=== PATIENT | male | born 1955 | race Caucasian/White ===

== ENCOUNTER 2016-04-12 13:43 | Inpatient (IN) | payer OTHER ==
[~2016-04-12] VITALS: Ht 185.4 cm; Wt 111.7 kg
[2016-04-12 13:49] VITALS: BP 157/99; PULSE 66; RESP 20; O2SAT 99
--- NOTE | 2016-04-12 14:03 | ED.REPORT ---
HPI-Neurologic Deficit Date of Service Apr 12, 2016 ED Provider: John Holder MD The patient is a 60 year old male with history of high cholesterol and atrial fibrillation no anticoagulated, who presents to the emergency department complaining of stroke like symptoms. At 1315 when he was on the phone with his daughter he noticed difficulty finding his words. Soon after he noticed right lower extremity weakness which progressed up his entire left side. This lasted for about 1-2 minutes and is completely resolved at this time. He does currently complain of a headache. 2 weeks ago he had an episode of vision loss that he describes as a curtain going across his visual field. He denies history of stroke or stroke workup. He has never had similar symptoms in the past. He is not on blood thinners. He denies recent falls or trauma. Nursing Notes Stated Complaint: LEFT SIDE WEAKNESS Chief Complaint: Neuro Symptoms/ Deficits Nursing Notes Reviewed: Yes Allergies: Coded Allergies: No Known Allergies (Unverified , 05/09/15) No Active Prescriptions or Reported Meds General Time Seen by Provider: 14:04 Chief Complaint Weakness leg... (Right), Other (difficulty finding words) Hx Obtained From: Patient, Spouse Arrived By: Walk-in Sudden in Onset?: Yes Onset Occurred: 46 - 59 minutes ago Symptom Duration: 1 - 15 minutes Progression Since Onset: Resolved Location: : Head Severity: Current: Mild Severity: Maximum: Moderate Recent Healthcare: No recent doctor visit, No recent hospitalization Similar Sx Previous: No Past Medical History Past Medical History Hx of kidney stones Atrial fibrillation High cholesterol Past Surgical History Fat removal from neck Family History Noncontributory Smoking History Never Smoker Social History Alcohol Use: "Social" Other Social History: Good social support, , Local resident Ambulatory Status Independent Review of Systems Review of Systems Note: +difficulty finding words Neurologic: Reports: Focal weakness, Headache, Problem walking Complete sys rev & neg: except as marked. Physical Exam Initial Vital Signs Vital Signs (First) Date Time Temp Pulse Resp B/P Pulse Ox O2 Delivery O2 Flow Rate FiO2 04/12/16 13:49 36.4 66 20 157/99 99 Room Air Initial VS: Reviewed Neck: Supple, Non-tender, Full range of motion Abdomen / GI: Soft, Non-tender, No guarding, No rebound, No distention Lymphatic: No lymphadenopathy Extremities: Vascular intact, Neuro intact, No swelling, No tenderness Skin: Warm, Dry, No cyanosis Psychiatric: Mood/affect normal, Behavior normal, Normal thought content General/Constitutional: Awake, Alert, Cooperative Head / Eyes: Atraumatic, Normocephalic, PERRL, EOMI, No nystagmus Respiratory / Chest: Atraumatic, Breath sounds NL, Breath sounds = bilat, No respiratory distress, No rales, No rhonchi, No wheezing Cardiovascular: Heart rate NL, Regular rhythm, Heart sounds NL, No gallop, No murmurs, No rubs, Peripheral circulation NL Neurologic: Oriented X3, Speech NL, No motor deficits, No sensory deficits, CN II - XII intact, Cerebellar NL, Memory NL, Gait NL Speech is fluent, linear, and organized. No slurred speech or difficulty finding words. No facial droop. Strength is 5/5 to all 4 extremities. ENT: Airway patent Mouth: Positive: Mucous membranes dry (slightly) Lower Extremity / Pelvis / MS: Neurologic intact, Vascular intact, No edema No calf swelling or tenderness Interpretation & Diagnostics Lab Results Interpretation Result Diagram: 04/12/16 1402 04/12/16 1402 Test 04/12/16 14:02 04/12/16 14:54 White Blood Count 10.3th/mm3 (3.8-10.1) Red Blood Count 5.08mil/mm3 (4.40-5.80) Hemoglobin 15.4g/dL (13.8-17.2) Hematocrit 45.1% (41.0-50.0) Mean Corpuscular Volume 88.8fL (81-100) Mean Corpuscular Hemoglobin 30.3pg (27.0-35.0) Mean Corpuscular Hemoglobin Concent 34.1% (32.0-37.0) Red Cell Distribution Width 14.0% (12.3-15.4) Platelet Count 263bil/L (150-400) Neutrophils (%) (Auto) 50.0% (40-74) Lymphocytes (%) (Auto) 39.2% (14-46) Monocytes (%) (Auto) 8.1% (4-12) Eosinophils (%) (Auto) 1.8% (0-5) Basophils (%) (Auto) 0.4% (0-3) Prothrombin Time 10.6sec (8.1-12.5) Prothromb Time International Ratio 0.99ratio Activated Partial Thromboplast Time 26.2sec (22.8-33.0) Sodium Level 138mEq/L (134-144) Potassium Level 4.2mEq/L (3.5-5.2) Chloride Level 99mEq/L (97-108) Carbon Dioxide Level 25mmol/L (18-29) Blood Urea Nitrogen 23mg/dL (6-24) Creatinine 0.93mg/dL (0.76-1.27) Estimat Glomerular Filtration Rate 88mL/min (>59) Glucose Level 109mg/dL (60-99) Calcium Level 9.1mg/dL (8.5-10.1) Total Bilirubin 0.2mg/dL (0.0-1.2) Aspartate Amino Transf (AST/SGOT) 16U/L (0-50) Alanine Aminotransferase (ALT/SGPT) 18U/L (0-44) Alkaline Phosphatase 72U/L (25-160) Troponin T < 0.010ug/L (0.0-0.011) Total Protein 7.1g/dL (6.4-8.4) Albumin 4.2g/dL (3.4-5.0) Hold Cardoza Top Tube Received (Received) ECG Interpretation ECG Interpretation: Sinus rhythm Normal axis Incomplete RBBB No ST segment changes Inferior Q waves present No T wave abnormalities Compared to prior dated 05/09/2015 there are no changes Time: 14:09 Interpreted by: ED physician CT Head Interpretation IMPRESSION: No acute intracranial abnormalities. Dictated by: Tania Cruz M.D. on 04/12/2016 at 14:54. Study: Head CT no contrast Interpretation / Wet Read by: Interpret - Radiologist Re-Eval/Medical Decision Med Decision/Clinical Course The patient is a 60 year old male with history of high cholesterol and atrial fibrillation not anticoagulated, who presents to the emergency department complaining of stroke like symptoms. Approximately 45 minutes prior to arrival he had left-sided weakness with slurred speech that lasted 5-10 minutes and has now completely resolved. Full head to toe neurologic assessment here in the emergency department is completely unremarkable. Head CT was obtained and demonstrated no evidence of acute intracranial process , hemorrhage or mass lesion. CBC unremarkable, CMP unremarkable, troponin negative, coags are WNL. EKG was obtained and interpreted by myself as documented above. Of note he was not in atrial fibrillation and was never in atrial fibrillation on continuous cardiac monitoring. Overall presentation concerning for transient ischemic attack, I am concerned that he is in and out of atrial fibrillation and may be having recurrent TIAs as a result thereof. He is currently not on any anticoagulant medication or aspirin. At this time he is neurologically intact and therefore not a candidate for TPA. I feel that he warrants admission for further workup likely including echocardiogram, carotid imaging and MRI of the brain. After discussing with the admitting hospitalist and ruling out intracranial hemorrhage he was initiated on heparin infusion due to his underlying atrial fibrillation. He was transferred in stable condition. Source of Hx: Old records, Family Re-Evaluation/Progress : Time of Eval: 14:09 Re-Evaluation/Progress Note: Discussed plan for admission. All questions were addressed. Consultation : Referral / Consult Name: Stephen Vallecillo MD Consulted With: Hospitalist Call Returned at: 14:56 Rn Navigator: Will see patient, Agrees with eval, Agrees with plan, Accepts admit Counseled Regarding: Diagnosis, Lab results, Need for admission Discharge & Departure Impression: Primary Impression: TIA (transient ischemic attack) Transient cerebral ischemia type: unspecified Qualified Code: G45.9 - Transient cerebral ischemic attack, unspecified Additional Impressions: Paroxysmal atrial fibrillation Left-sided weakness Slurred speech Hyperlipidemia Hyperlipidemia type: unspecified Qualified Code: E78.5 - Hyperlipidemia, unspecified Disposition: ADMITTED TO HOSPITAL Discharge Condition All VS Reviewed: Yes Condition: Stable Referrals: NOPCP (PCP) Crit Care Except Billable Proc Time Spent: 30-74 minutes Services Performed: Patient management by me, Time spent at bedside, Reviewing test results, Reviewing imaging, Discussing patient care, Documentation in record, Time with fam/surrogate Scribe Attestation Portions of this note were transcribed by Steph Manzo. I, Dr. Holder personally performed the history, physical exam and medical decision-making; I reviewed and confirmed the accuracy of the information in the transcribed note. Signed by: Richard Rojas, 04/12/2016 at 1516. John Holder MD Apr 12, 2016 14:03 Steph Manzo Apr 12, 2016 14:13
[2016-04-12 14:28] LABS: BASOPHILS % (AUTO) 0.4 % (0-3); EOSINOPHILS % (AUTO) 1.8 % (0-5); MONOCYTES % (AUTO) 8.1 % (4-12); Mean Corpuscular Hemoglobin 30.3 pg (27.0-35.0); Mean Corpuscular Volume 88.8 fL (81-100); Platelet Count 263 bil/L (150-400)
[2016-04-12 14:42] VITALS: BP 126/87; PULSE 65; RESP 17; O2SAT 96
[2016-04-12 14:42] LABS: INR 0.99 ratio
[2016-04-12 15:02] LABS: TROPONIN T < 0.010 ug/L (0.0-0.011)
--- NOTE | 2016-04-12 15:15 | DRSVH ---
PROCEDURE: CT BRAIN WITHOUT CONTRAST ([id number]) INDICATIONS: word searching TECHNIQUE: Noncontrast 4.5 mm thick angled axial sections acquired from the foramen magnum to the vertex, with c oronal reformats. COMPARISON: None. FINDINGS: Image quality: Excellent. CSF spaces: Basal cisterns are patent. No extra-axial fluid collections. The ventricles are symmet erlinda in size and shape. Brain: No intracranial bleeds or masses. There is mild cerebral volume loss for age, with resultant ventricular and sulcal prominence. There are mild periventricular and deep white matter chronic sma ll vessel ischemic changes. There is intracranial internal carotid artery atherosclerosis. Skull and face: Calvarium and visualized facial bones appear intact, without suspicious lesions. Sinuses: Visualized sinuses and mastoids are clear. IMPRESSION: No acute intracranial abnormalities. Dictated by: Tania Cruz M.D. on 04/12/2016 at 14:54 Approved by: Tania Cruz M.D. on 04/12/2016 at 14:56
--- NOTE | 2016-04-12 15:50 | NUR ---
Admission Patient arrived from ED with at bedside. Oriented patient to room and hospital policies. Patient denies any loss of sensation in extremities at this time. Per ED RN swallow screen completed by ED RN.
[2016-04-12] MEDS ORDERED: ASPI-973 PO (16:01)
[2016-04-12] MEDS ORDERED: METO25TA6 PO (16:01)
[2016-04-12] MEDS ORDERED: ASCO-294 PO (16:03)
[2016-04-12 16:20] VITALS: BP 133/83; PULSE 64; RESP 16; O2SAT 98
[2016-04-12] MEDS: Heparin 25K Unit/500mL 0.45 NS 25,000 UNIT in IV Premix 1 EACH IV SCH (16:54)
--- NOTE | 2016-04-12 17:10 | NUR ---
Heparin gtt Heparin gtt initiated per cardiac protocol. Verbal order from Ruth Ann to start without an initial bolus dose. Lab checks ordered. Tele applied. Guiacing all stools. Pt education provided.
[2016-04-12 17:27] LABS: APPEARANCE,URINE CLEAR (CLEAR,HAZY); COLOR,URINE YELLOW (YELLOW); OCCULT BLOOD,URINE NEGATIVE (NEGATIVE); PH,URINE 5.5 (5.0-8.0); UROBILINOGEN,URINE NORMAL (NORMAL)
[2016-04-12] MEDS ORDERED: Alum-Mag Hydrox-Simeth 30 mL Suspension PO PRN (18:00)
[2016-04-12] MEDS ORDERED: Polyethylene Glycol (PEG) 17 Gm Powder PO PRN (18:00)
[2016-04-12] MEDS ORDERED: Ondansetron 2 mg/mL 2 mL Inj IV PRN (18:00)
[2016-04-12 18:10] VITALS: PULSE 70
--- NOTE | 2016-04-12 19:05 | PCM.PHAPRO ---
Progress Date of Service: Apr 12, 2016 Dx: Afib PMH: hyperlipidemia, kidney stones INR goal 2-3 INR 0.99 (below goal) give warfarin 5mg tonight draw INR AM labs on 04/13 per pharmacy Bob PeraltaD Bob Long Apr 12, 2016 19:05
[2016-04-12 20:00] VITALS: PULSE 67
--- NOTE | 2016-04-12 20:39 | HP ---
[address] [address] HISTORY AND PHYSICAL PATIENT: MARYJANE HAMPTON : 1955 MR#: [id number] ADMIT: 04/12/2016 JOB ID: [id number] PRIMARY CARE PROVIDER: Dr. Peres, [facility] [employer]AL MARKETING MANAGER: Charanjit [facility]. DISPOSITION: Patient admitted from ED, inpatient status Blue Team. CHIEF COMPLAINT: Weakness, left leg. HISTORY OF PRESENT ILLNESS: This is a 60-year-old male, who while talking on the phone and standing at 1:15 this afternoon noticed a funny feeling in his left leg. It kind of got wobbly and weak. He did not feel he could bear weight on it, so he sat down. Right after he sat down, it seemed to spread up more on the left side towards his shoulder but with no definitive weakness in the arm. He had been talking to his daughter on the phone through this kept and talking and all of sudden could not speak for about 20 seconds. He lied down on the floor and slowly this got better. He called his at this time. She came down and checked his blood pressure, his vitals, everything looked good. The feeling seemed to get better, and he was able to stand up and everything resolved. This whole event lasted about 90 seconds, but it clearly was there. Patient never had anything like this before. Totally resolved. Presents to the ED. Exam was normal, and head CT was negative, and patient was admitted to the hospital. Additionally two weeks ago, patient was in [place], and he was in a market standing by himself, and all of a sudden he lost the vision in his left eye, kind of closed his eye, the left eye, and he could see and then he lost the vision in both eyes. He stood there, and he said he was unable to see anything and this went on for about a minute, and then his vision came back over about a minute and was normal. Again, he never had this before and had no further symptoms with this. Patient has atrial fibrillation. He was in this facility on May 09, 2015 and clearly had AFib on an EKG. Today, his EKG showed sinus rhythm. For his AFib, the patient is on metoprolol 25 mg b.i.d. and an aspirin 81 mg. He has never been on Coumadin. With this episode today, patient also had a little bit of headache across his anterior chest and head, and that resolved after a few minutes, and it was mild. He had no pain or other symptoms when he had the loss of vision two weeks ago. REVIEW OF SYSTEMS: Complete review of systems obtained with the patient, all pertinent positives are noted above in HPI. Rest of the review of systems negative is negative. PAST MEDICAL HISTORY: 1. Paroxysmal atrial fibrillation. 2. Sleep apnea now on BiPAP. MEDICATIONS: 1. Metoprolol 25 b.i.d., presumably tartrate. 2. Baby aspirin 81 mg daily. 3. Vitamin C. ALLERGIES: None. SOCIAL HISTORY: Patient lives with his . Never smoked. Drinks minimal amounts of alcohol. FAMILY HISTORY: His mother was 94, passed way of old age, had an MO and a stroke. His father has AFib. PHYSICAL EXAMINATION: Afebrile, heart rate 66, respiratory rate 20, blood pressure 157/99, O2 sats 96% on room air. Skin is warm and dry. Eyes: PERRLA. EOMs intact. His cranial nerves 2-12 are intact. The patient has no motor deficits. He has no pronator drift. His gait is normal. He has no sensory loss. Finger-nose heel-beebe is all normal. Mouth shows adequate hydration. Neck is without thyromegaly, and there are no bruits. Cardiac is regular. No rubs, murmurs or gallops. Lungs clear to auscultation and percussion. Abdomen soft, nonacute, benign. Extremities showed no clubbing, cyanosis, or edema. ASSESSMENT: 1. Probable transient ischemic attack, present on admission, improving. The patient has underlying AFib, and he has had an episode of transient blindness, and now an episode of transient weakness to his left leg. This certainly could represent TIAs. We have gone over risks and benefits of aspirin versus Coumadin, and patient does elect to be placed on Coumadin with bridging heparin at this point in time. We are going to go with heparin and Coumadin. Hold his aspirin. I will touch base with Dr. Donohue tomorrow as she is his doctor. We are going to get an acute stroke protocol MRI, will also start patient on a low-dose statin. Get a speech therapy eval. The patient has no deficits, does not need physical therapy. Will complete Coumadin teaching. 2. AFib, paroxysmal, present on admission, active. At this point,patient is not in AFib. Will continue his metoprolol and as mentioned aboveDC his aspirin, initiate Coumadin therapy with heparin bridging. 3. Sleep apnea, present on admission, stable. Will continue with patient's BiPAP here in the hospital. CODE STATUS: FULL CODE. Code sheet filled out. [facility]
[2016-04-12 21:08] VITALS: BP 132/76; PULSE 64; RESP 18; O2SAT 98
[2016-04-13] VITALS (8 sets, daily range): BP systolic 107–134; BP diastolic 71–91; PULSE 55–71; RESP 18; O2SAT 95–98
[2016-04-13] MEDS: Heparin 5,000 Unit/mL Inj IVPUSH PRN ×3 (00:07→19:50)
--- NOTE | 2016-04-13 00:11 | NUR ---
PTT heparin 0002 pt had a ptt heparin result of 34, per protocol given 5000 unit bolus and increased gtt rate by 200. Currently running on 1200 units per hour. Orders verified with Pharmacy and Dr. Harman. No obvious s/sx of bleeding. Will continue to monitor.
[2016-04-13 08:11] LABS: BASOPHILS % (AUTO) 0.4 % (0-3); EOSINOPHILS % (AUTO) 2.3 % (0-5); MONOCYTES % (AUTO) 8.2 % (4-12); Mean Corpuscular Hemoglobin 30.4 pg (27.0-35.0); Mean Corpuscular Volume 88.8 fL (81-100); NEUTROPHILS % (AUTO) 42.8 % (40-74); Platelet Count 227 bil/L (150-400)
[2016-04-13 08:19] LABS: INR 1.03 ratio
[2016-04-13] MEDS: Ascorbic Acid 500 mg Tablet PO SCH (08:37)
--- NOTE | 2016-04-13 08:55 | NUR ---
Social Work Screen Note: Patient is a 60 year old male admitted under observation status for TIA. Patient payer as [employer] [place]. Patient emergency contact as significant other Suzi, . Patient resides in [facility]. Patient independent with needs prior to admit. Speech assessed patient and patient currently on pureed honey thick diet. No AD on file and patient denied completion. SW will continue to follow pending clinical course. PLAN: Home via POV, pending clinical course. SW will continue to follow Amol SEE
[2016-04-13 09:06] LABS: TROPONIN T < 0.010 ug/L (0.0-0.011)
--- NOTE | 2016-04-13 10:10 | NUR ---
Evaluation completed. Please go to "Notes" then click on "Assessments and Notes" (bottom left corner of screen). Then select appropriate discipline tab on top of screen.
--- NOTE | 2016-04-13 11:32 | PCM.PHAPRO ---
Progress Date of Service: Apr 13, 2016 INR = 1.03, Hgb/hct = 13.8/40.3 Pt to continue on warfarin therapy for afib and TIA. Also on heparin drip. Pt received 5mg warfarin yesterday. Will give another dose of warfarin 5mg tonight. INRs are ordered. Pharmacy will continue to follow patient's warfarin therapy. Archana Lopez PharmD Apr 13, 2016 11:32
[2016-04-13] MEDS: Heparin 25K Unit/500mL 0.45 NS 25,000 UNIT in IV Premix 1 EACH IV SCH (15:50)
--- NOTE | 2016-04-13 16:02 | DRSVH ---
[facility] [address] [place] [address] Echocardiogram Report Name: MARYJANE HAMPTON Da te: 04/13/2016 Height: 73 in Hospital Exam Location: [facility] Weight: 245 lb Gender: Male BSA: 2.3 m2 : 1955 Age: 60 yrs BP: 107/72 mmHg Reason For Study: TIA Ordering Physician: Performed By: [facility] Interpretation Summary The left ventricle is normal in size, wall thickness, and systolic function without any focal wall motion abnormalities. The ejection fraction is estimated to be 60-65%. The right ventricle is mildly dilated. The right ventricular systolic function is normal. The right ventricular systolic pressure is estimated at 36 mmHg assuming a right atrial pressure of 8 mm Hg. The left atrium is moderately dilated. The right atrium is mild to moderately dilated. Injection of contrast documented no interatrial shunt. There is no significant valvular heart disease. The aortic root is normal size. The aortic arch is mildly enlarged. No obvious source for cardioembolic TIA/CVA. No significant changes since 05/09/2015. Procedure: A two-dimensional transthoracic echocardiogram with color flow and Doppler was performed. The study quality was technically adequate. Comparison is made with the echocardiogram of 05-09-15. The patient was in normal sinus rhythm during the exam. Left Ventricle: The left ventricle is normal in size, wall thickness, and systolic function without any focal wall motion abnormalities. The ejection fraction is estimated to be 60-65%. Assessment of diastolic parameters indicates normal left ventricular diastolic function and normal filling pressures. Right Ventricle: The right ventricle is mildly dilated. The right ventricular systolic function is normal. Atria: The left atrium is moderately dilated. The right atrium is mild to moderately dilated. Injection of contrast documented no interatrial shunt. Mitral Valve: The mitral valve is normal in structure and function. There is no mitral regurgitation noted. Aortic Valve: The aortic valve is trileaflet. The aortic valve opens well. No aortic regurgitation is present. Tricuspid Valve: The tricuspid valve is normal in structure and function. There is a trace or physiologic amount of tricuspid regurgitation. The right ventricular systolic pressure is estimated at 36 mmHg assuming a right atrial pressure of 8 mm Hg. Pulmonic Valve: The pulmonic valve is normal in structure and function. There is no pulmonic valvular regurgitation. There is no significant valvular heart disease. Great Vessels: The aortic root is normal size. The dimensions of the ascending aorta are normal. The aortic arch is mildly enlarged. The IVC is dilated (diameter is greater than 2.1 cm) yet it collapses greater than 50% with a sniff. This suggests a right atrial pressure of 8 mm Hg. Pericardium/ Pleura There is no pericardial effusion. There is no pleural effusion. MMode/2D Measurements & Calculations LVIDd: 4.5 cm RA long axis LVOT diam: 2.0 cm LVIDs: 2.6 cm LA A2 area: 25.3 cm AoV Opening FS: 41.5 % LA A4 area: 31.3 cm RA area EPSS: 0.74 cm LA length (vol) Ao root diam IVSd: 0.98 cm : 26.5 cm LVPWd: 0.83 cm LA vol: 102.7 ml RA vol asc Aorta Diam LA vol index : 97.8 ml RA Ao Arch Diam (Prox : 41.7 mm/ Trans): 3.4 cm IVC diam: 2.1 cm RVDd major : 6.6 cm LV escobedo. diameter/BSA LV sys. diameter/BSA RVD1 (basal) RVD2 (mid): 4.0 cm (cm/m^2): 1.9 (cm/m^2): 1.1 TAPSE: 3.3 cm Doppler Measurements & Calculations Ao V2 max MV E max vimal MV E/A: 1.0 TR max vimal : 165.7 cm/sec : 79.5 cm/sec Med Peak E' Vimal : 265.1 cm/sec Ao max P.0 mmHg MV A max vimal TR max PG Ao mean P.4 mmHg : 77.8 cm/sec E/E' med: 9.3 : 28.1 mmHg MV P1/2t Lat Peak E' Vimal PA V2 max : 59.5 msec : 128.4 cm/sec E/E' lat: 7.5 PA mean PG E/e' average: 8.4 : 3.2 mmHg Pulm A Revs Dur MV A dur: 0.11 sec MV dec time: 0.20 sec MV P1/2t max vimal Ao V2 mean PA V2 mean : 121.8 cm/sec : 83.3 cm/sec MVA(P1/2t) Ao V2 VTI: 35.0 cm : 3.7 cm2 Pulm A Revs Dur - MV A Dur: -0.02 msec Reading Physician:PM
--- NOTE | 2016-04-13 16:40 | NUR ---
Off floor to MRI via WC. Heparin Drip SL while away per order. Tele notified.
--- NOTE | 2016-04-13 18:40 | DRSVH ---
PROCEDURE: MRI STROKE PROTOCOL ([id number]) Pre- and post-contrast brain MRI, non-contrast brain MR angiogram, pre- and postcontrast neck MR michael ogram INDICATIONS: Transient left leg weakness,visual disturbance TECHNIQUE: Brain: Noncontrast axial T1 spin echo, axial T2 fast spin echo, sagittal and axial FLAIR, coronal T2 fast spin echo, axial gradient echo, axial diffusion and ADC through the brain. After the administr ation of contrast, axial 3D VIBE of the cranial vasculature and brain. Brain MRA: Non-contrast 3-D time of flight MR angiogram, with multiple idkiqto-unbumtsfx-otddellzzf (MIP) reformats performed. Neck MRA: Axial and sagittal TruFISP through the neck. Coronal dynamic MR angiogram during administ ration of contrast in the arterial and venous phases, with 3-dimenstional gpztkwz-iaxjspxxe-fkkgcwape n (MIP) reformats constructed from subtraction images. COMPARISON: [facility], CT, CT BRAIN WO CON, 04/12/2016, 14:23. FINDINGS: Image quality: Excellent. BRAIN: CSF spaces: Ventricles are normal in size and shape. Basal cisterns are patent. No extra-axial flu id collections. Brain: No intracranial bleeds or mass effects. De Paz-white matter interface is normal. Diffusion we ighted images show no acute ischemic insults. Brainstem appears normal. Normal intravascular flow v oids are present. No abnormal intracranial enhancement. Skull and face: Calvarial marrow signal is normal. Orbits appear normal. Sinuses: Sinuses and mastoids are clear. BRAIN MR ANGIOGRAM: Anterior circulation: Intracranial internal carotid arteries are normal in size and enhancement. Th e flow within the paired anterior cerebral arteries is normal and symmetric true cross-collateral randi w via the anterior communicating artery, given the diminutive normal anatomic variant size of the lef t A1 segment anterior cerebral artery. The flow within the middle cerebral arteries is normal and sy mmetric. The anterior communicating artery is seen. No stenoses, occlusions, or aneurysms. Posterior circulation: The visualized portions of the vertebral arteries demonstrate normal caliber, and join to form a normal appearing basilar artery. The flow within the posterior cerebral arteries is normal and symmetric. No stenoses, occlusions, or aneurysms. NECK MR ANGIOGRAM: Carotids: Great vessels demonstrate a conventional anatomy as they arise from the aortic arch. The origins of the common carotid arteries appear patent. The calibers and courses of both common caroti d arteries are normal. The bifurcation regions appear normal bilaterally. The internal carotid pat marcela demonstrate normal course and caliber. Posterior circulation: The origins of the vertebral arteries appear patent. More superior portions of both vertebral arteries demonstrate normal course and caliber, and join to form a normal appearing basilar artery. Miscellaneous: Subclavian arteries appear patent. Pre-contrast images through the neck show no soft tissue abnormalities. IMPRESSION: BRAIN MRI: No evidence of acute or subacute ischemic injury. No prior stroke identified. A definite source of current symptoms is not seen. No appreciable microvascular atherosclerotic changes noted within the deep white matter of each hemisphere. BRAIN MR ANGIOGRAM: There is a normal anatomic variant diminutive left A1 segment anterior cerebral a rtery, with cross collateral flow through the anterior communicating artery providing symmetric perfu melanie to the more peripheral anterior cerebral arteries bilaterally. NECK MR ANGIOGRAM: Normal cervical MR angiogram. The estimate of stenosis included in the report of the imaging study was calculated using the NASCET method Dictated by: Gerald Parsons M.D. on 04/13/2016 at 18:21 Approved by: Gerald Parsons M.D. on 04/13/2016 at 18:39
--- NOTE | 2016-04-13 19:31 | NUR ---
Dayshift Pt ambulated around UNIT. Steady on feet, no s/sw of distress. Heparin drip running, put on hold for about 1hr while off to MRI. Next shift aware. Awaiting new APTT results.
--- NOTE | 2016-04-13 19:49 | PCM.PNMED ---
Subjective Date of Service Apr 13, 2016 Subjective This is 60 YO male with h/o paroxysmal A-Fib (currently in sinus rhythm) and sleep apnea (on BiPAP), who presented to [facility] ED with left leg weakness and was admitted for possible TIA. Hospital day 1. No acute events overnight. Patient denies new onset of weakness, loss of sensation, slurred speech, vision loss. He is resting comfortably in a very good mood. is by bedside. Exam Vital Signs Vital Sign - Last Date Time Temp Pulse Resp B/P Pulse Ox O2 Delivery O2 Flow Rate FiO2 04/13/16 10:35 71 04/13/16 09:56 36.4 18 118/74 96 Room Air Intake and Output 04/12/16 04/12/16 04/13/16 Cumulative From/Thru 15:00 23:00 07:00 04/12/16 13:49 - 04/13/16 05:54 Intake Total 450 ml 178 ml 628 ml Output Total 425 ml 425 ml Balance 25 ml 178 ml 203 ml Intake Oral 450 ml 450 ml IV Total 178 ml 178 ml Output Urine Total 425 ml 425 ml # Bowel Movements 0 0 Exam General: alert and oriented in no acute distress Neck: supple Heart: RRR, no murmurs Lungs: CTAB Abdomen: soft, nontender Neuro: no motor and/or sensory loss, normal speech Lab and Diagnostics Result Diagram: 04/13/16 0725 04/13/16 0725 X-Rays, CTs and MRIs PROCEDURE: CT BRAIN WITHOUT CONTRAST ([id number]) IMPRESSION: No acute intracranial abnormalities. Dictated by: Tania Cruz M.D. on 04/12/2016 at 14:54 Approved by: Tania Cruz M.D. on 04/12/2016 at 14:56 PROCEDURE: MRI STROKE PROTOCOL ([id number]) Pre- and post-contrast brain MRI, non-contrast brain MR angiogram, pre- and postcontrast neck MR angiogram IMPRESSION: BRAIN MRI: No evidence of acute or subacute ischemic injury. No prior stroke identified. A definite source of current symptoms is not seen. No appreciable microvascular atherosclerotic changes noted within the deep white matter of each hemisphere. BRAIN MR ANGIOGRAM: There is a normal anatomic variant diminutive left A1 segment anterior cerebral artery, with cross collateral flow through the anterior communicating artery providing symmetric perfusion to the more peripheral anterior cerebral arteries bilaterally. NECK MR ANGIOGRAM: Normal cervical MR angiogram. The estimate of stenosis included in the report of the imaging study was calculated using the NASCET method Dictated by: Gerald Parsons M.D. on 04/13/2016 at 18:21 Approved by: Gerald Parsons M.D. on 04/13/2016 at 18:39 12-lead ECG Sinus rhythm Cardiac Echo Impressions Echocardiogram Report Interpretation Summary The left ventricle is normal in size, wall thickness, and systolic function without any focal wall motion abnormalities. The ejection fraction is estimated to be 60-65%. The right ventricle is mildly dilated. The right ventricular systolic function is normal. The right ventricular systolic pressure is estimated at 36 mmHg assuming a right atrial pressure of 8 mm Hg. The left atrium is moderately dilated. The right atrium is mild to moderately dilated. Injection of contrast documented no interatrial shunt. There is no significant valvular heart disease. The aortic root is normal size. The aortic arch is mildly enlarged. No obvious source for cardioembolic TIA/CVA. No significant changes since 05/09/2015. Reading Physician:PM Assessment & Plan # Probable TIA, present on admission, improving - Pt has underlying A-Fib, and he has had an episode of transient blindness, and now an episode of transient weakness to his left leg. This certainly could represent TIAs. - Pt placed on Coumadin with bridging heparin. Hold aspirin. Dr. Donohue will be notified of these changes. - ECHO came back normal - MRI head & neck normal - Continue Atorvastatin 20 mg daily - Ordered Hgb A1C # A-Fib, paroxysmal, present on admission, active. - At this point, patient is not in A-Fib. - Continue metoprolol 25 mg bid, continue Coumadin per pharmacy and heparin drip. # Sleep apnea, present on admission, stable. - Continue with patient's BiPAP here in the hospital. Disposition: Most likely DC home tomorrow. Pain Evaluation: Pain not Controlled VTE Prophylaxis: Theraputic Anticoag with Warfarin Resuscitation Status: CPR: Attempt Resuscitation Attending Statement The patient was seen and examined together with Dr. Crawford on 04-13-16 and I agree with the history, exam and plan as outlined in the note above. Diane Crawford DO Apr 13, 2016 13:13 Stephen Vallecillo MD Apr 14, 2016 08:50
[2016-04-14] VITALS (8 sets, daily range): BP systolic 117–153; BP diastolic 71–96; PULSE 55–79; RESP 18; O2SAT 90–97
--- NOTE | 2016-04-14 05:20 | NUR ---
Noc/Heparin gtt Pt is still on heparin drip, running on 1425units/hr. No obvious s/sx of bleeding or hemorrhage. Denies chest pain, sob, n/v or abd discomfort. AOX4, PERRLA, No facial droop or tongue deviation or slurring of speech noted. 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 HS meds administered as scheduled, VSS, and pt has been afebrile overnight.
[2016-04-14 07:27] LABS: BASOPHILS % (AUTO) 0.5 % (0-3); EOSINOPHILS % (AUTO) 2.7 % (0-5); MONOCYTES % (AUTO) 7.8 % (4-12); Mean Corpuscular Hemoglobin 30.3 pg (27.0-35.0); Mean Corpuscular Volume 88.7 fL (81-100); Platelet Count 236 bil/L (150-400)
[2016-04-14 07:39] LABS: INR 1.04 ratio
[2016-04-14] MEDS: Ascorbic Acid 500 mg Tablet PO SCH (08:13)
--- NOTE | 2016-04-14 08:15 | PCM.PHAPRO ---
Progress Date of Service: Apr 14, 2016 Dx: Afib INR goal 2-3 INR 1.04 (below goal) give warfarin 5mg tonight draw INR AM labs on 04/15 per pharmacy Bob PeraltaD Bob Long Apr 14, 2016 08:15
[2016-04-14] MEDS: Heparin 25K Unit/500mL 0.45 NS 25,000 UNIT in IV Premix 1 EACH IV SCH (11:52)
--- NOTE | 2016-04-14 15:51 | NUR ---
Heparin gtt/Neuro aPTT therapeutic this morning, no changes to gtt rate made at that time. Per MD orders heparin gtt discontinued at 1500, 2 hours prior to lovenox injection. Pt currently SL. Neuro in tact, no deficits noted. Uses call light to make needs known.
--- NOTE | 2016-04-14 16:43 | PCM.PNMED ---
Subjective Date of Service Apr 14, 2016 Subjective This is 60 YO male with h/o paroxysmal A-Fib (currently in sinus rhythm) and sleep apnea (on BiPAP), who presented to [facility] ED with left leg weakness and was admitted for possible TIA. Hospital day 3. No acute events overnight. Denies new neurologic symptoms, chest pain, sob, n/ v or abd discomfort. Patient has been afebrile overnight. is by bedside. Exam Vital Signs Vital Sign - Last Date Time Temp Pulse Resp B/P Pulse Ox O2 Delivery O2 Flow Rate FiO2 04/14/16 13:38 36.4 62 18 129/76 97 Room Air Intake and Output 04/13/16 04/13/16 04/14/16 Cumulative From/Thru 14:59 22:59 06:59 04/12/16 13:49 - 04/14/16 06:33 Intake Total 400 ml 1100 ml 1358 ml 3486 ml Output Total 700 ml 1500 ml 550 ml 3175 ml Balance -300 ml -400 ml 808 ml 311 ml Intake Oral 400 ml 1100 ml 750 ml 2700 ml IV Total 608 ml 786 ml Output Urine Total 700 ml 1500 ml 550 ml 3175 ml # Bowel Movements 1 1 Exam General: alert and oriented in no acute distress Neck: supple Heart: RRR, no murmurs Lungs: CTAB Abdomen: soft, nontender Neuro: No facial droop or tongue deviation, 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 Dictated by: Tania Cruz M.D. on 04/12/2016 at 14:54 Approved by: Tania Cruz M.D. on 04/12/2016 at 14:56 PROCEDURE: MRI STROKE PROTOCOL ([id number]) Pre- and post-contrast brain MRI, non-contrast brain MR angiogram, pre- and postcontrast neck MR angiogram IMPRESSION: BRAIN MRI: No evidence of acute or subacute ischemic injury. No prior stroke identified. A definite source of current symptoms is not seen. No appreciable microvascular atherosclerotic changes noted within the deep white matter of each hemisphere. BRAIN MR ANGIOGRAM: There is a normal anatomic variant diminutive left A1 segment anterior cerebral artery, with cross collateral flow through the anterior communicating artery providing symmetric perfusion to the more peripheral anterior cerebral arteries bilaterally. NECK MR ANGIOGRAM: Normal cervical MR angiogram. The estimate of stenosis included in the report of the imaging study was calculated using the NASCET method Dictated by: Gerald Parsons M.D. on 04/13/2016 at 18:21 Approved by: Gerald Parsons M.D. on 04/13/2016 at 18:39 12-lead ECG Sinus rhythm Cardiac Echo Impressions Echocardiogram Report Interpretation Summary The left ventricle is normal in size, wall thickness, and systolic function without any focal wall motion abnormalities. The ejection fraction is estimated to be 60-65%. The right ventricle is mildly dilated. The right ventricular systolic function is normal. The right ventricular systolic pressure is estimated at 36 mmHg assuming a right atrial pressure of 8 mm Hg. The left atrium is moderately dilated. The right atrium is mild to moderately dilated. Injection of contrast documented no interatrial shunt. There is no significant valvular heart disease. The aortic root is normal size. The aortic arch is mildly enlarged. No obvious source for cardioembolic TIA/CVA. No significant changes since 05/09/2015. Reading Physician:PM Assessment & Plan # 1. Probable TIA, POA, resolved - Pt has underlying A-Fib, and he has had an episode of transient blindness, and now an episode of transient weakness to his left leg. This certainly could represent TIAs. - Pt placed on Coumadin with bridging heparin. Aspirin is held. Dr. Donohue is in agreement. - ECHO and MRI head & neck normal - Continue Atorvastatin 20 mg daily - Today, patient"s heparin drip will be stopped at 3 PM and Lovenox shots started at 5 PM. Preauthorization for Lovenox has been submitted. - Lovenox injection education by nurse - INR in the morning (INR 1.04 today) - Probable discharge home tomorrow # 2. A-Fib, paroxysmal, POA, active - At this point, patient is not in A-Fib. - Continue metoprolol 25 mg bid, continue Coumadin # 3. Elevated hemoglobin A1c, POA, stable - Hemoglobin A1c 5.8 - Recommend life style changes and follow-up with PCP as outpatient # Sleep apnea, present on admission, stable. - Continue with patient's BiPAP here in the hospital VTE Prophylaxis: Theraputic Anticoag with Warfarin Resuscitation Status: CPR: Attempt Resuscitation Attending Statement The patient was seen and examined together with Dr. Crawford on 04-14-16 and I agree with the history, exam and plan as outlined in the note above. Diane Crawford DO Apr 14, 2016 16:43 Stephen Vallecillo MD Apr 15, 2016 18:11
--- NOTE | 2016-04-14 17:52 | NUR ---
Social Work Continued Discharge Planning: LEONARDO obtained script for enoxaparin. Patient aware and states pharmacy of choice as [facility] on [facility], . LEONARDO faxed orders and patient has a $5 copay. Patient aware. Script placed in patient chart. LEONARDO to follow. PLAN: Home with SO via POV, pending clinical course Amol SEE
--- NOTE | 2016-04-14 20:17 | NUR ---
P: Pt complained of tender/red IV site I: Slight inflammation and redness present on assessment@1700, asked primary nurse to assess. E: At re-assessment @2009, It was less red and inflamed, so primary nurse decided to keep monitoring it for any further signs. S: Pt in bed with light on, 2 bed rails up, non-skid socks, call light within reach.
[2016-04-15 01:40] VITALS: BP 124/74; PULSE 54; RESP 18; O2SAT 97
[2016-04-15 04:56] VITALS: BP 113/71; PULSE 56; RESP 16; O2SAT 96
--- NOTE | 2016-04-15 05:47 | NUR ---
activity Pt is alert and oriented x 4, no s/s of TIA. Pt moves about independently in room. IV site is patent, no complaints of any further irritation. Left room with call light at bedside.
[2016-04-15 07:21] LABS: BASOPHILS % (AUTO) 0.2 % (0-3); EOSINOPHILS % (AUTO) 2.2 % (0-5); MONOCYTES % (AUTO) 7.6 % (4-12); Mean Corpuscular Hemoglobin 30.2 pg (27.0-35.0); Mean Corpuscular Volume 88.4 fL (81-100); NEUTROPHILS % (AUTO) 49.6 % (40-74); Platelet Count 225 bil/L (150-400)
[2016-04-15 07:40] LABS: INR 1.05 ratio
[2016-04-15] MEDS: Ascorbic Acid 500 mg Tablet PO SCH (08:34)
[2016-04-15 09:22] VITALS: BP 114/71; PULSE 66; RESP 18; O2SAT 95
[2016-04-15 10:38] VITALS: PULSE 58
--- NOTE | 2016-04-15 12:35 | NUR ---
Social Work: Discharge Data: Pt is on day 3 of hospitalization. EMR reviewed, pt's D/C orders are in. Pt's medication has a $5 copay. No d/c planning needs at this time. ASSEMBLY MANAGER will continue to follow if needs arise. Assessment: Pt who is independent at baseline. Plan: Pt will d/c home via POV today. Pt's medication has a $5 copay. No d/c planning needs at this time. ASSEMBLY MANAGER will continue to follow if needs arise. ESA Epstein
--- NOTE | 2016-04-15 14:00 | PCM.DIMED ---
Diane Crawford DO 04/15/16 1400: Discharge Instructions Date of Service Apr 15, 2016 Dates of Hospitalization Apr 12, 2016 at 14:54 Discharge Diagnosis Discharge Diagnosis 1. Probable TIA, POA, resolved 2. A-Fib, paroxysmal, POA, active 3. Elevated hemoglobin A1c, POA, stable 4. Sleep apnea, present on admission, stable Medication Instructions You will go home with Warfarin 7.5 mg daily and Lovenox (shots). Prescriptions are given to you upon discharge. Follow up with [facility] no later than 04/17/16. Diet Heart Healthy Activity No restrictions Call your provider Fever or Chills, Shortness of breath, Bleeding, Chest pain, Vomitting, Excessive diarrhea, Weakness (unilateral) Patient Instructions Follow-up Provider: Renuka Peres DO Follow-up with PCP in: 2 weeks Stephen Vallecillo MD 04/15/16 1813: Discharge Instructions Attending's Statement The patient was seen and examined together with Dr. Crawford on 04-14-16 and I agree with the history, exam and plan as outlined in the note above. Diane Crawford DO Apr 15, 2016 14:00 Stephen Vallecillo MD Apr 15, 2016 18:13
[2016-04-15] MEDS ORDERED: WARF7.5T4 PO (14:04)
[2016-04-15] MEDS ORDERED: LOV100 SUBQ (14:15)
--- NOTE | 2016-04-15 14:45 | PCM.PHAPRO ---
Progress Date of Service: Apr 15, 2016 Dx: Afib INR goal 2-3 INR 1.05 (below goal) Comments: INR steady at subtherapeutic; increase dose give warfarin 7.5mg po tonight draw INR AM labs on 04/16 per pharmacy Bob Long PharmD Bob Long Apr 15, 2016 14:45
--- NOTE | 2016-04-15 14:46 | PCM.DC.MED ---
Discharge Summary Date of Service Apr 15, 2016 Dates of Hospitalization Date of Hospital Admission Apr 12, 2016 at 14:54 Date of Discharge: Apr 15, 2016 Providers: Admitting Physician: Shahriar Schmidt MD Primary Care Physician: Renuka Peres DO Attending Physician: Shahriar Schmidt MD Diagnosis at Time of Discharge Diagnosis at Time of Discharge 1. Probable TIA, POA, resolved 2. A-Fib, paroxysmal, POA, active 3. Elevated hemoglobin A1c, POA, stable 4. Sleep apnea, present on admission, stable Procedures XRay, CTs & MRIs PROCEDURE: CT BRAIN WITHOUT CONTRAST ([id number]) IMPRESSION: No acute intracranial abnormalities. Dictated by: Tania Cruz M.D. on 04/12/2016 at 14:54 Approved by: Tania Cruz M.D. on 04/12/2016 at 14:56 PROCEDURE: MRI STROKE PROTOCOL ([id number]) Pre- and post-contrast brain MRI, non-contrast brain MR angiogram, pre- and postcontrast neck MR angiogram IMPRESSION: BRAIN MRI: No evidence of acute or subacute ischemic injury. No prior stroke identified. A definite source of current symptoms is not seen. No appreciable microvascular atherosclerotic changes noted within the deep white matter of each hemisphere. BRAIN MR ANGIOGRAM: There is a normal anatomic variant diminutive left A1 segment anterior cerebral artery, with cross collateral flow through the anterior communicating artery providing symmetric perfusion to the more peripheral anterior cerebral arteries bilaterally. NECK MR ANGIOGRAM: Normal cervical MR angiogram. The estimate of stenosis included in the report of the imaging study was calculated using the NASCET method Dictated by: Gerald Parsons M.D. on 04/13/2016 at 18:21 Approved by: Gerald Parsons M.D. on 04/13/2016 at 18:39 ECG 12 Lead Sinus rhythm Cardiac Echo Impression Echocardiogram Report Interpretation Summary The left ventricle is normal in size, wall thickness, and systolic function without any focal wall motion abnormalities. The ejection fraction is estimated to be 60-65%. The right ventricle is mildly dilated. The right ventricular systolic function is normal. The right ventricular systolic pressure is estimated at 36 mmHg assuming a right atrial pressure of 8 mm Hg. The left atrium is moderately dilated. The right atrium is mild to moderately dilated. Injection of contrast documented no interatrial shunt. There is no significant valvular heart disease. The aortic root is normal size. The aortic arch is mildly enlarged. No obvious source for cardioembolic TIA/CVA. No significant changes since 05/09/2015. Reading Physician:GARY Brief History History obtained by admitting physician, Stephen Vallecillo MD HISTORY OF PRESENT ILLNESS: This is a 60-year-old male, who while talking on the phone and standing at 1:15 this afternoon noticed a funny feeling in his left leg. It kind of got wobbly and weak. He did not feel he could bear weight on it, so he sat down. Right after he sat down, it seemed to spread up more on the left side towards his shoulder but with no definitive weakness in the arm. He had been talking to his daughter on the phone through this kept and talking and all of sudden could not speak for about 20 seconds. He lied down on the floor and slowly this got better. He called his at this time. She came down and checked his blood pressure, his vitals, everything looked good. The feeling seemed to get better , and he was able to stand up and everything resolved. This whole event lasted about 90 seconds, but it clearly was there. Patient never had anything like this before. Totally resolved. Presents to the ED. Exam was normal, and head CT was negative, and patient was admitted to the hospital. Additionally two weeks ago, patient was in [place], and he was in a market standing by himself, and all of a sudden he lost the vision in his left eye, kind of closed his eye, the left eye, and he could see and then he lost the vision in both eyes. He stood there, and he said he was unable to see anything and this went on for about a minute, and then his vision came back over about a minute and was normal. Again, he never had this before and had no further symptoms with this. Patient has atrial fibrillation. He was in this facility on May 09, 2015 and clearly had AFib on an EKG. Today, his EKG showed sinus rhythm. For his AFib, the patient is on metoprolol 25 mg b.i.d. and an aspirin 81 mg. He has never been on Coumadin. With this episode today, patient also had a little bit of headache across his anterior chest and head, and that resolved after a few minutes, and it was mild. He had no pain or other symptoms when he had the loss of vision two weeks ago. Hospital Course 1. Probable TIA, POA, resolved Patient has underlying A-Fib, and he has had an episode of transient blindness in the past, and now an episode of transient weakness to his left leg. This certainly could represent TIAs. Patient was placed on Coumadin with bridging IV heparin. Aspirin was held. Both ECHO and MRI head & neck did not reveal any abnormality. IV heparin was stopped on 04/14/16 at 3 pm and first Lovenox injection was given two hours later. Patient received education on how to do Lovenox subcutaneous injections and discharged home on Coumadin, 7.5 mg daily and Lovenox 100 mg sc q12. He was instructed to go to a [facility] no later than 04/17/16 to check his INR. Patient's INR on the day of discharge was 1.05. Patient expressed understanding. Patient's was also started on Lipitor, 20 mg during his hospital stay which he will continue with as an outpatient. 2. A-Fib, paroxysmal, POA, active At this point, patient is not in A-Fib. He will continue Metoprolol 25 mg bid and Coumadin (with [facility] follow up) as described above. 3. Elevated hemoglobin A1c, POA, stable Hemoglobin A1c is 5.8. Recommend life style changes and follow-up with PCP as outpatient. 4. Sleep apnea, present on admission, stable. Continue with patient's BiPAP here in the hospital Exam Vital Signs (Last) Date Time Temp Pulse Resp B/P Pulse Ox O2 Delivery O2 Flow Rate FiO2 04/15/16 10:38 58 04/15/16 09:22 36.8 18 114/71 95 Room Air Exam General: Alert, Oriented X3 NAD Head: Normocephalic, atraumatic Eyes: EVA, EOMI, no scleral Icterus Oropharynx: pink moist oral mucosa Neck: supple, trachea midline, no adenopathy Chest: clear to auscultation B/L, no wheezing rales or rhonchi Heart: RRR, Normal S1, S2, no murmurs noted Abdomen: soft, non-tender. Bowel sounds are normoactive. No guarding or rebound. Extremities: no cyanosis, clubbing or edema. No acute joint inflammation. Skin: no acute rashes or lesions noted Neuro: Cranial nerves II-XII intact, no focal findings. Psych: normal judgement and insight. Test 04/12/16 14:54 04/12/16 16:15 04/13/16 07:25 04/14/16 06:55 Hold Cardoza Top Tube Received (Received) Urine Color Yellow (YELLOW) Urine Appearance Clear (CLEAR,HAZY) Urine pH 5.5 (5.0-8.0) Urine Specific Blue 1.020 (1.003-1.035) Urine Protein Negativemg/dL (NEG,TRACE) Urine Glucose (UA) Negativemg/dL (NEGATIVE) Urine Ketones Negativemg/dL (NEGATIVE) Urine Occult Blood Negative (NEGATIVE) Urine Nitrite Negative (NEGATIVE) Urine Bilirubin Negative (NEGATIVE) Urine Urobilinogen Normalmg/dL (NORMAL) Urine Leukocyte Esterase Negative (NEGATIVE) Urine RBC 0-2/hpf (0-2) Urine WBC 0-5/hpf (0-5) Urine Epithelial Cells Occasional/hpf (NONE-MOD) Urine Crystals None seen (NONE SEEN) Urine Bacteria None/hpf (NONE-FEW) Urine Hyaline Casts None/lpf (NONE) Urine Granular Casts None seen (NONE SEEN) Urine Waxy Casts None seen (NONE SEEN) Urine Red Blood Cell Casts None seen (NONE SEEN) Urine White Blood Cell Casts None seen (NONE SEEN) Urine Mucus None seen (None Seen) Urine Trichomonas None seen (NONE SEEN) Urine Yeast None (NONE SEEN) Urinalysis Comment None Urine Culture Reflexed Not indicated Erythrocyte Sedimentation Rate 6mm/hr (0-30) Hemoglobin A1c 5.8% (4.8-5.6) Troponin T < 0.010ug/L (0.0-0.011) Triglycerides Level 104mg/dL (0-149) Cholesterol Level 174mg/dL (100-199) LDL Cholesterol, Calculated 108.200mg/dL (0-99) VLDL Cholesterol 20.800mg/dL HDL Cholesterol 45mg/dL (>39) Cholesterol/HDL Ratio 3.87 (0.0-4.4) Thyroid Stimulating Hormone (TSH) 2.480uIU/mL (0.450-4.500) Activated Partial Thromboplast Time 64.1sec (22.8-33.0) Test 04/15/16 06:35 White Blood Count 8.1th/mm3 (3.8-10.1) Red Blood Count 4.74mil/mm3 (4.40-5.80) Hemoglobin 14.3g/dL (13.8-17.2) Hematocrit 41.9% (41.0-50.0) Mean Corpuscular Volume 88.4fL (81-100) Mean Corpuscular Hemoglobin 30.2pg (27.0-35.0) Mean Corpuscular Hemoglobin Concent 34.1% (32.0-37.0) Red Cell Distribution Width 13.5% (12.3-15.4) Platelet Count 225bil/L (150-400) Neutrophils (%) (Auto) 49.6% (40-74) Lymphocytes (%) (Auto) 39.8% (14-46) Monocytes (%) (Auto) 7.6% (4-12) Eosinophils (%) (Auto) 2.2% (0-5) Basophils (%) (Auto) 0.2% (0-3) Prothrombin Time 11.3sec (8.1-12.5) Prothromb Time International Ratio 1.05ratio Sodium Level 141mEq/L (134-144) Potassium Level 4.3mEq/L (3.5-5.2) Chloride Level 102mEq/L (97-108) Carbon Dioxide Level 27mmol/L (18-29) Blood Urea Nitrogen 20mg/dL (6-24) Creatinine 1.03mg/dL (0.76-1.27) Estimat Glomerular Filtration Rate 79mL/min (>59) Glucose Level 97mg/dL (60-99) Calcium Level 8.9mg/dL (8.5-10.1) Total Bilirubin 0.4mg/dL (0.0-1.2) Aspartate Amino Transf (AST/SGOT) 18U/L (0-50) Alanine Aminotransferase (ALT/SGPT) 20U/L (0-44) Alkaline Phosphatase 65U/L (25-160) Total Protein 6.4g/dL (6.4-8.4) Albumin 4.2g/dL (3.4-5.0) Discharge Medications Discharge Medications Ascorbate Calcium (Vitamin C) 500 Mg Tablet 500 MG PO DAILY (Reported) Enoxaparin (Lovenox) 100 Mg/Ml Syringe 100 MG SUBQ Q12 Prescribed by: LANA TARIQ DO Metoprolol Tartrate (Metoprolol Tartrate) 25 Mg Tablet 25 MG PO BID (Reported) Warfarin Sodium (Warfarin Sodium) 7.5 Mg Tablet 7.5 MG PO DAILY Prescribed by: LANA TARIQ DO Additional med instructions 1. You will go home with Warfarin 7.5 mg daily and Lovenox (shots). Prescriptions are given to you upon discharge. [facility] no later than 04/17/16 to check your INR. 2. Also, we started you on Atorvastatin 20 mg daily. You received a prescription for one month. Your PCP should be able to prescribe this for you from now on. Followup Plan Discharge Diet: Heart Healthy Discharge Activity: No restrictions Follow-up Provider: Renuka Peres DO Follow-up with PCP in: 2 weeks Attending Statement The patient was seen and examined together with Dr. Tariq on 04-14-16 and I agree with the history, exam and plan as outlined in the note above. Lana Tariq DO Apr 15, 2016 14:35 Stephen Vallecillo MD Apr 15, 2016 18:14
--- NOTE | 2016-04-15 15:05 | NUR ---
DISCHARGE Pt dc'd home this afternoon at 1445, amb off unit accompanied by . VSS, A&Ox4, denies any pain and in no apparent distress. IV dc'd intact, all belongings returned. All instructions for diet, activity, medications, prescriptions and follow up lab work reviewed with patient who reports understanding.
== END 2016-04-15 15:12 | disposition home or self-care (01) | DRG 948 ==
LOC: SED 13:43 → OBSVTOIN 14:54 → MPC 14:54
PROVIDERS: ADMIT Internal Medicine; ATTEND Internal Medicine
DX: R53.1 Weakness (principal); G45.9 Transient cerebral ischemic attack, unspecified; I48.0 Paroxysmal atrial fibrillation; G47.30 Sleep apnea, unspecified